=== PATIENT | male | born 1965 | race Caucasian/White ===

== ENCOUNTER 2017-07-23 07:50 | Inpatient (IN) | payer OTHER ==
[~2017-07-23] VITALS: Ht 177.8 cm; Wt 125.0 kg
[2017-07-23] VITALS (31 sets, daily range): BP systolic 96–187; BP diastolic 55–96
[2017-07-23] MEDS ORDERED: FIRAZYR30 MG/3 ML SQ (08:03)
[2017-07-23] MEDS ORDERED: EPINEPHrine 1mg/1ml Amp ONE (08:05)
[2017-07-23] MEDS ORDERED: Racemic EPINEPHrine 2.25% 0.5ml HHN ONE (08:15)
[2017-07-23] MEDS ORDERED: Solu-MEDROL 125mg Inj IVP ONE (08:15)
[2017-07-23] MEDS ORDERED: DiphenhydrAMINE 50mg/ml Inj IVP ONE (08:15)
[2017-07-23] MEDS ORDERED: EPINEPHrine 1mg/1ml Amp IM ONE (08:15)
[2017-07-23 08:30] LABS: BASOPHILS % (AUTO) 1.6 % (0.0-2.0); EOSINOPHILS % (AUTO) 3.1 % (0.0-3.0); HEMATOCRIT 48.5 % (42.0-52.0); HEMOGLOBIN 16.8 G/DL (14.2-18.0); LYMPHOCYTES % (AUTO) 33.2 % (20.0-45.0); MEAN CORPUSCULAR VOLUME 84 FL (80-99); MONOCYTES % (AUTO) 6.8 % (1.0-10.0); NEUTROPHILS % (AUTO) 55.4 % (45.0-75.0); PLATELET COUNT 355 K/UL (150-450); RED CELL DISTRIBUTION WIDTH 11.6 % (11.6-14.8); WHITE BLOOD COUNT 10.4 K/UL (4.8-10.8)
[2017-07-23 08:34] LABS: ANION GAP 9 mmol/L (5-15); BLOOD UREA NITROGEN 11 mg/dL (7-18); CALCIUM 9.2 MG/DL (8.5-10.1); CARBON DIOXIDE 29 MMOL/L (21-32); CHLORIDE 102 MMOL/L (98-107); POTASSIUM 4.2 MMOL/L (3.5-5.1); SODIUM 140 MMOL/L (136-145)
[2017-07-23 08:45] LABS: ALANINE AMINOTRANSFERASE 81 U/L (12-78); ALBUMIN 3.9 G/DL (3.4-5.0); ALBUMIN/GLOBULIN RATIO 1.1 (1.0-2.7); ALKALINE PHOSPHATASE 79 U/L (46-116); ASPARTATE AMINO TRANSFERASE 37 U/L (15-37); BILIRUBIN,TOTAL 0.5 MG/DL (0.2-1.0); CREATINE KINASE 220 U/L (26-308)
--- NOTE | 2017-07-23 08:55 | Emergency Room Report ---
History of Present Illness General Chief Complaint: Dyspnea/Respdistress Source: Patient Present Illness HPI The patient has a history of hereditary and edema. He presents with an allergic reaction with swelling in his tongue and mouth and throat. Started last night he says. He usually takes Firazyr but doesn't have any at this time. He states his been intubated one time before many years ago. No fever, NVD, dysuria, chest pain, cough, joint pain, headache. Some anxiety. Allergies: Coded Allergies: No Known Allergies (Unverified , 07/23/17) Patient History Past Medical History: see triage record, other - hereditary angioedema Pertinent Family History: other - hereditary angioedema Social History: Denies: smoking, alcohol use, drug use Social History Narrative at home Reviewed Nursing Documentation: PMH: Agreed; PSxH: Agreed Nursing Documentation-PMH Past Medical History: No History, Except For Review of Systems All Other Systems: negative except mentioned in HPI Physical Exam Vital Signs Date Time Temp Pulse Resp B/P (MAP) Pulse Ox O2 Delivery O2 Flow Rate FiO2 07/23/17 07:59 Room Air 07/23/17 08:19 106 16 4.0 07/23/17 08:24 175/88 100 Sp02 EP Interpretation: reviewed, normal General Appearance: no apparent distress, alert, GCS 15, obese Eyes: bilateral eye normal inspection, bilateral eye PERRL ENT: moist mucus membranes, other - marked lip and tongue edema Neck: other - minimal stidor - intermittent Respiratory: normal breath sounds, no respiratory distress, no retraction, no accessory muscle use Cardiovascular #1: regular rate, rhythm Cardiovascular #2: 2+ radial (L) Gastrointestinal: non tender, soft, decreased bowel sounds, overweight Musculoskeletal: back normal, gait/station normal, normal range of motion, no calf tenderness Neurologic: alert, oriented x3, grossly normal Psychiatric: anxious Skin: normal color, warm/dry, well hydrated, other - facial edema Procedures Critical Care Time Critical Care Time Total Critical Care Time: 135 min bedside evaluation and treatment excludes procedures (EKG, cricothyrotomy). Reason for critical care: angioedema, emergent airway, sedation, FFP transfusion Possible complications: hypotension, hypertension, CA, shock, arrhythmias, metabolic acidosis, end organ damage, respiratory failure. Interventions: epi, solumedrol, FFP, cricothyrotomy, sedation, ventilator adjustment, discussion with family and consultants, repeated evaluations Course: Patient presented with mouth and airway edema with h/o hereditary angioedema. Immediate placement in room with advanced airway tools. Epi IM, solumedrol, pepcid and benadryl administered. Call to pharmacy for Firazyr. Call to sister for same. Call to blood bank for FFP. Racemic epi. Some improvement. Discussed with patient need for intubation or possibly cric. He stated he wanted to wait for his sister with the medicine. Agitation with complete obstruction. Emergency cricothyrotomy. Transient bradycardia, patient hyperventilated and improvement of HR, color. Vent and sedation ordered. Sister here and discussed condition. Med on its way. Agitation with multiple doses of versed. Ineffective - Propofol ordered and titrated by me. Firazyr here and administered by me. Resp acidosis - change vent and Albuterol ordered. Discussed with critical care MD. Discussed with ENT for consultation. Discussed with admitting MD. Patient improved with stable VS. Admitted ICU. Consultations: nursing staff,RT, family, pharmacy, critical care MD, admitting MD and ENT Performed by: Dr. Williamson Tolerated well condition = critical Additional Procedure Procedure Narrative Emergent cricothyrotomy: Betadeine prep. Skin incision made with #12 blade. Incised cricothyoid membrane and kept open with scaple handle. Schiley 8.0 inserted with ease and good breath sounds. EBL approx 2 ml. Minimal blood suctioned from Sh[place], no ongoing bleeding. Secured by RT and myself. Tolerated well with improved VS. Placed on vent. Medical Decision Making Diagnostic Impression: Primary Impression: Hereditary angio-edema Additional Impressions: Upper airway obstruction Respiratory arrest ER Course The patient with hereditary angioedema presents with a true upper airway emergency. IM epinephrine, Solu Medrol, Benadryl and Pepcid are given to the patient. We're working to try and see if we can get some Firazyr here. In addition to that - cricothyrotomy and intubation equipment is opened at bedside. Racemic epi was given and the patient states he feels a little bit better with this. I've contacted the patient's sister is that she's working on bringing in Firazyr. [facility] does not have this medicine available. Fresh frozen plasma is ordered from the blood bank also, I called stating we needed this STAT. FFP transfusing. Discussed with patient probable need for intubation and possibly surgical airway. He refused and wants to wait for sister and med. Patient obstructed at 9:00. Agitation with then loss of consciousness. Immediately cricothyrotomy performed. Transient bradycardia which resolved. Placed on vent. Never lost pulses. Sister arrived. Discussed condition. Soon a friend provided Firazyr. Administered SC by me. Agitation treated with repeated doses of versed. ABG with resp acidosis. Vent changed and Albuterol ordered. Versed ineffective - Propofol boluses by me until adequate sedation. Discussed with Dr. Pa, Dr. Moore and Dr. Lindsay. Admit ICU. Laboratory Tests Test 07/23/17 08:03 07/23/17 10:38 07/23/17 14:09 White Blood Count 10.4 K/UL (4.8-10.8) Red Blood Count 5.80 M/UL (4.70-6.10) Hemoglobin 16.8 G/DL (14.2-18.0) Hematocrit 48.5 % (42.0-52.0) Mean Corpuscular Volume 84 FL (80-99) Mean Corpuscular Hemoglobin 28.9 PG (27.0-31.0) Mean Corpuscular Hemoglobin Concent 34.5 G/DL (32.0-36.0) Red Cell Distribution Width 11.6 % (11.6-14.8) Platelet Count 355 K/UL (150-450) Mean Platelet Volume 6.9 FL (6.5-10.1) Neutrophils (%) (Auto) 55.4 % (45.0-75.0) Lymphocytes (%) (Auto) 33.2 % (20.0-45.0) Monocytes (%) (Auto) 6.8 % (1.0-10.0) Eosinophils (%) (Auto) 3.1 % (0.0-3.0) H Basophils (%) (Auto) 1.6 % (0.0-2.0) Prothrombin Time 10.4 SEC (9.30-11.50) Prothrombin Time INR 1.0 (0.9-1.1) PTT 22 SEC (23-33) L Sodium Level 140 MMOL/L (136-145) Potassium Level 4.2 MMOL/L (3.5-5.1) Chloride Level 102 MMOL/L (98-107) Carbon Dioxide Level 29 MMOL/L (21-32) Anion Gap 9 mmol/L (5-15) Blood Urea Nitrogen 11 mg/dL (7-18) Creatinine 1.0 MG/DL (0.55-1.30) Estimate Glomerular Filtration Rate > 60 mL/min (>60) Glucose Level 135 MG/DL (74-106) H Calcium Level 9.2 MG/DL (8.5-10.1) Total Bilirubin 0.5 MG/DL (0.2-1.0) Aspartate Amino Transferase (AST) 37 U/L (15-37) Alanine Aminotransferase (ALT) 81 U/L (12-78) H Alkaline Phosphatase 79 U/L (46-116) Total Creatine Kinase 220 U/L (26-308) Troponin I 0.000 ng/mL (0.000-0.056) Pro-B-Type Natriuretic Peptide 14 pg/mL (0-125) Total Protein 7.5 G/DL (6.4-8.2) Albumin 3.9 G/DL (3.4-5.0) Globulin 3.6 g/dL Albumin/Globulin Ratio 1.1 (1.0-2.7) Triglycerides Level 313 MG/DL (30-150) H Arterial Blood pH 7.103 (7.350-7.450) 7.385 (7.350-7.450) Arterial Blood Partial Pressure CO2 56.6 mmHg (35.0-45.0) *H 37.3 mmHg (35.0-45.0) Arterial Blood Partial Pressure O2 141.0 mmHg (75.0-100.0) H 114.0 mmHg (75.0-100.0) H Arterial Blood HCO3 17.3 mmol/L (22.0-26.0) L 21.8 mmol/L (22.0-26.0) L Arterial Blood Oxygen Saturation 97.9 % (92.0-98.0) 97.3 % (92.0-98.0) Arterial Blood Base Excess -12.9 -2.7 Gpoi Test Positive Positive EKG Diagnostic Results Rate: tachycardiac ST Segments: no acute changes Other Impression Second EKG: ST, nl axis no injury Rhythm Strip Diag. Results EP Interpretation: yes Rhythm: no PVC's, no ectopy, other - tachy Chest X-Ray Diagnostic Results Chest X-Ray Diagnostic Results #1: Chest X-Ray Ordered: Yes # of Views/Limited/Complete: 1 View Indication: Other Interpretation: no consolidation, no effusion, no pneumothorax Impression: Other Electronically Signed by: Electronically signed by Khurram Williamson MD Chest X-Ray Diagnostic Results #2: Chest X-Ray Ordered: Yes # of Views/Limited/Complete: 1 View Indication: Other Interpretation: no consolidation, no effusion, no pneumothorax, other - cric in place Impression: Other Electronically Signed by: Khurram Williamson MD Last Vital Signs Date Time Temp Pulse Resp B/P (MAP) Pulse Ox O2 Delivery O2 Flow Rate FiO2 07/23/17 19:04 74 21 60 07/23/17 19:04 100 Mechanical Ventilator 07/23/17 18:30 110/93 07/23/17 17:30 97.7 97.7 07/23/17 14:33 15.0 Status: improved Disposition: ADMITTED INPATIENT Condition: Critical Referrals: NON PHYSICIAN (PCP) Khurram Williamson M.D. Jul 23, 2017 08:55
[2017-07-23] MEDS ORDERED: Midazolam 2mg/2ml Inj IVP ONE ×4 (09:15→10:15)
--- NOTE | 2017-07-23 09:56 | Diagnostic Imaging Report ---
Indication: Dyspnea Technique: One view of the chest Comparison: none Findings: There is some atelectasis of the right lung base. Lungs and pleural spaces are otherwise clear. Normal heart size Impression: Minimal right basilar atelectasis. No acute process otherwise
[2017-07-23] MEDS ORDERED: Midazolam for drip 50 MG in NS 90 ML IV ONE (10:00)
[2017-07-23] MEDS ORDERED: Propofol 200mg/20ml IV ONE ×3 (10:15→20:15)
[2017-07-23] MEDS ORDERED: FIRAZYR SUBQ STA (11:00)
[2017-07-23] MEDS ORDERED: Albuterol ud Inhalation HHN ONE (11:00)
[2017-07-23] MEDS ORDERED: Midazolam for drip 50 MG in NS 90 ML IV SCH (11:00)
--- NOTE | 2017-07-23 11:18 | Diagnostic Imaging Report ---
Indication: Post tracheostomy placement Technique: One view of the chest Comparison: One hour earlier Findings: Interim tracheostomy placement. No pneumothorax or pneumomediastinum is evident. Inspiration is suboptimal. There is some crowding of the bronchovascular markings in the right suprahilar region. The lungs and pleural spaces are otherwise clear. The heart size is normal Impression: Apparent satisfactory tracheostomy placement, no radiographically evident complication
[2017-07-23] MEDS: D5NS 1,000 ML IV SCH ×2 (14:00→23:28)
[2017-07-23] MEDS: ceFAZolin sod 1 GM in D5W 55 ML IVPB SCH ×2 (14:00→21:27)
[2017-07-23] MEDS: Pantoprazole Inj IVP SCH (14:00)
[2017-07-23] MEDS: Solu-MEDROL 40mg Inj IVP SCH ×2 (14:05→21:26)
[2017-07-23] MEDS: Albuterol/Ipratropium 3ml neb HHN SCH ×2 (14:31→19:03)
[2017-07-23] MEDS ORDERED: Morphine Sulfate 10mg/ml Inj IVP PRN (21:30)
[2017-07-23] MEDS ORDERED: Morphine Sulfate 4mg/ml Inj IVP PRN (21:30)
[2017-07-23] MEDS ORDERED: Morphine Sulfate 10mg/ml Inj IM PRN (21:30)
[2017-07-23] MEDS: Morphine Sulfate 4mg/ml Inj IVP PRN (21:49)
[2017-07-23 21:55] LABS: APPEARANCE,URINE TURBID; BILIRUBIN, URINE NEGATIVE (NEGATIVE); COLOR,URINE PALE YELLOW; GLUCOSE, URINE (UA) NEGATIVE (NEGATIVE); KETONES,URINE NEGATIVE (NEGATIVE); LEUKOCYTE ESTERASE ,URINE 1+ (NEGATIVE); NITRITE,URINE NEGATIVE (NEGATIVE); PH,URINE 6 (4.5-8.0); PROTEIN,URINE 1+ (NEGATIVE); UROBILINOGEN,URINE NORMAL MG/DL (0.0-1.0)
[2017-07-24] VITALS (40 sets, daily range): BP systolic 115–189; BP diastolic 58–97
[2017-07-24] MEDS: Albuterol/Ipratropium 3ml neb HHN SCH ×4 (01:13→19:36)
[2017-07-24] MEDS ORDERED: LORazepam Inj 2mg/ml 1ml IV PRN (02:30)
[2017-07-24 05:01] LABS: HEMATOCRIT 38.6 % (42.0-52.0); HEMOGLOBIN 13.4 G/DL (14.2-18.0); MEAN CORPUSCULAR VOLUME 83 FL (80-99); PLATELET COUNT 286 K/UL (150-450); RED BLOOD COUNT 4.63 M/UL (4.70-6.10); RED CELL DISTRIBUTION WIDTH 11.5 % (11.6-14.8); WHITE BLOOD COUNT 18.4 K/UL (4.8-10.8)
[2017-07-24 05:16] LABS: ALANINE AMINOTRANSFERASE 67 U/L (12-78); ALBUMIN 3.8 G/DL (3.4-5.0); ALBUMIN/GLOBULIN RATIO 1.1 (1.0-2.7); ALKALINE PHOSPHATASE 66 U/L (46-116); ANION GAP 10 mmol/L (5-15); ASPARTATE AMINO TRANSFERASE 33 U/L (15-37); BILIRUBIN,TOTAL 0.5 MG/DL (0.2-1.0); BLOOD UREA NITROGEN 14 mg/dL (7-18); CARBON DIOXIDE 26 MMOL/L (21-32); CHLORIDE 104 MMOL/L (98-107); POTASSIUM 3.7 MMOL/L (3.5-5.1); SODIUM 140 MMOL/L (136-145); TRIGLYCERIDES 198 MG/DL (30-150)
[2017-07-24] MEDS: ceFAZolin sod 1 GM in D5W 55 ML IVPB SCH ×3 (05:59→21:21)
[2017-07-24] MEDS: Solu-MEDROL 40mg Inj IVP SCH ×3 (05:59→21:20)
--- NOTE | 2017-07-24 07:57 | General Progress Note ---
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 system SNOMED: 22205097 Status: stable, progressing Assessment/Plan vent support resp care anxiolytics FFP as needed pharmacy to deliver additonal doses of firazyr tomorrow Subjective ROS Limited/Unobtainable: No Constitutional: Reports: no symptoms HEENT: Reports: throat pain Cardiovascular: Reports: no symptoms Respiratory: Reports: no symptoms Gastrointestinal/Abdominal: Reports: no symptoms Genitourinary: Reports: no symptoms Neurologic/Psychiatric: Reports: no symptoms Endocrine: Reports: no symptoms Hematologic/Lymphatic: Reports: no symptoms Allergies: Coded Allergies: No Known Allergies (Unverified , 07/23/17) All Systems: reviewed and negative except above Subjective no events. alert. c/o anxiety. facial edema improving approx 25% better. Objective Last 24 Hour Vital Signs Date Time Temp Pulse Resp B/P (MAP) Pulse Ox O2 Delivery O2 Flow Rate FiO2 07/24/17 07:00 20 145/72 07/24/17 07:00 73 20 136/79 97 Mechanical Ventilator 60 07/24/17 06:59 50 07/24/17 06:59 76 21 99 Mechanical Ventilator 50 07/24/17 06:50 71 21 60 07/24/17 06:49 71 21 95 Mechanical Ventilator 50 07/24/17 06:30 76 20 146/82 99 Mechanical Ventilator 60 07/24/17 06:00 76 20 140/71 99 Mechanical Ventilator 60 07/24/17 06:00 19 140/71 07/24/17 05:59 20 141/69 07/24/17 05:24 87 21 60 07/24/17 05:00 84 20 133/65 97 Mechanical Ventilator 60 07/24/17 05:00 18 133/65 07/24/17 04:30 71 20 119/61 97 Mechanical Ventilator 60 07/24/17 04:00 98.4 72 20 127/63 97 Mechanical Ventilator 60 98.4 07/24/17 04:00 20 127/63 07/24/17 04:00 60 07/24/17 04:00 69 07/24/17 03:45 72 20 118/67 97 Mechanical Ventilator 60 07/24/17 03:30 72 20 115/58 96 Mechanical Ventilator 60 07/24/17 03:30 20 117/64 07/24/17 03:15 20 118/61 07/24/17 03:15 74 20 118/61 96 Mechanical Ventilator 60 07/24/17 03:00 79 20 126/61 97 Mechanical Ventilator 60 07/24/17 03:00 20 126/61 07/24/17 02:45 81 20 60 07/24/17 02:45 76 20 126/61 97 Mechanical Ventilator 60 07/24/17 02:45 20 126/61 07/24/17 02:30 20 126/61 07/24/17 02:30 81 20 136/73 98 Mechanical Ventilator 60 07/24/17 02:15 20 136/73 07/24/17 02:15 88 20 147/71 98 Mechanical Ventilator 60 07/24/17 02:00 91 22 141/65 98 Mechanical Ventilator 60 07/24/17 02:00 22 141/65 07/24/17 01:45 21 156/70 07/24/17 01:40 20 130/70 07/24/17 01:32 77 20 99 Mechanical Ventilator 15.0 60 07/24/17 01:32 60 07/24/17 01:30 69 20 129/65 100 Mechanical Ventilator 60 07/24/17 01:30 20 125/65 07/24/17 01:15 70 20 129/65 99 Mechanical Ventilator 60 07/24/17 01:14 72 20 99 Mechanical Ventilator 60 07/24/17 01:12 74 20 60 07/24/17 01:00 20 120/66 07/24/17 01:00 69 20 129/65 98 Mechanical Ventilator 60 07/24/17 00:45 20 129/65 07/24/17 00:45 69 20 129/96 98 Mechanical Ventilator 60 07/24/17 00:30 69 20 126/68 97 Mechanical Ventilator 60 07/24/17 00:00 69 07/24/17 00:00 98.3 70 20 125/68 97 Mechanical Ventilator 60 98.3 07/24/17 00:00 20 122/64 07/24/17 00:00 60 07/23/17 23:30 71 20 131/71 97 Mechanical Ventilator 60 07/23/17 23:21 74 20 60 07/23/17 23:00 20 125/68 07/23/17 23:00 72 20 125/65 97 Mechanical Ventilator 60 07/23/17 22:00 76 20 114/80 99 Mechanical Ventilator 60 07/23/17 22:00 20 114/80 07/23/17 21:26 22 161/82 18 21:15 19 130/56 07/23/17 21:15 80 20 161/82 100 Mechanical Ventilator 60 07/23/17 21:00 78 20 117/60 100 Mechanical Ventilator 60 07/23/17 21:00 21 133/79 07/23/17 20:45 20 150/76 07/23/17 20:45 77 20 111/89 100 Mechanical Ventilator 60 07/23/17 20:33 78 23 60 07/23/17 20:30 20 144/70 07/23/17 20:30 72 18 143/67 100 Mechanical Ventilator 60 07/23/17 20:15 19 161/82 07/23/17 20:15 72 18 143/67 100 Mechanical Ventilator 60 07/23/17 20:00 60 07/23/17 20:00 74 07/23/17 20:00 18 143/67 07/23/17 20:00 98.8 71 18 143/67 100 Mechanical Ventilator 60 98.8 07/23/17 19:45 19 108/62 07/23/17 19:45 70 19 130/71 100 Mechanical Ventilator 60 07/23/17 19:30 98.0 71 20 108/92 100 Mechanical Ventilator 60 98.0 07/23/17 19:14 78 20 99 Mechanical Ventilator 15.0 60 07/23/17 19:14 60 07/23/17 19:04 74 21 60 07/23/17 19:04 73 22 100 Mechanical Ventilator 60 07/23/17 19:00 20 108/92 07/23/17 19:00 72 20 108/92 100 Mechanical Ventilator 60 07/23/17 18:30 75 18 110/93 100 Mechanical Ventilator 60 07/23/17 18:00 66 20 136/67 100 Mechanical Ventilator 60 07/23/17 18:00 20 136/67 07/23/17 17:30 97.7 67 20 125/69 100 Mechanical Ventilator 60 97.7 07/23/17 17:15 65 20 60 07/23/17 17:00 63 20 123/56 100 Mechanical Ventilator 60 07/23/17 17:00 20 125/69 07/23/17 16:33 64 07/23/17 16:00 65 19 122/61 100 Mechanical Ventilator 60 07/23/17 16:00 19 123/56 07/23/17 15:48 20 115/59 18 15:30 63 20 115/59 99 Mechanical Ventilator 60 07/23/17 15:00 63 20 114/59 100 Mechanical Ventilator 60 07/23/17 15:00 20 123/59 07/23/17 14:35 68 20 60 07/23/17 14:33 68 20 99 Mechanical Ventilator 15.0 60 07/23/17 14:30 63 20 116/60 100 Mechanical Ventilator 60 07/23/17 14:26 72 20 98 Mechanical Ventilator 15.0 60 07/23/17 14:26 60 07/23/17 14:00 65 20 96/80 100 Mechanical Ventilator 60 07/23/17 14:00 20 114/59 07/23/17 13:30 65 20 96/80 100 Mechanical Ventilator 60 07/23/17 13:16 20 125/57 07/23/17 13:00 97.9 70 20 125/57 100 Mechanical Ventilator 60 97.9 07/23/17 12:39 98.0 81 20 122/75 97 Mechanical Ventilator 15.0 60 98.0 07/23/17 12:33 63 20 60 07/23/17 12:31 78 07/23/17 12:30 60 07/23/17 12:30 86 21 141/81 97 Mechanical Ventilator 60 07/23/17 12:02 81 20 122/75 97 Mechanical Ventilator 60 07/23/17 11:40 20 122/75 07/23/17 11:39 98.0 96 20 98.0 07/23/17 11:36 96.8 106 20 96.8 07/23/17 11:25 89 20 116/55 99 Mechanical Ventilator 60 07/23/17 11:25 21 121/65 07/23/17 11:12 100 20 96 Mechanical Ventilator 15.0 60 07/23/17 11:10 96.8 90 20 144/95 99 Mechanical Ventilator 60 96.8 07/23/17 11:10 20 144/95 07/23/17 11:00 85 20 96 Mechanical Ventilator 15.0 60 07/23/17 11:00 60 07/23/17 10:55 20 137/74 07/23/17 10:43 97.8 99 21 156/73 99 Mechanical Ventilator 60 97.8 07/23/17 10:41 97.8 07/23/17 10:40 20 156/73 07/23/17 10:33 89 20 60 07/23/17 10:08 13 07/23/17 09:45 97.8 105 20 182/89 97 Mechanical Ventilator 60 97.8 07/23/17 09:15 119 18 Mechanical Ventilator 15.0 60 07/23/17 09:13 119 18 60 07/23/17 09:10 97.8 107 21 187/96 97 Mechanical Ventilator 60 97.8 07/23/17 08:24 106 16 175/88 100 Nasal Cannula 4.0 07/23/17 08:19 106 16 Nasal Cannula 4.0 07/23/17 07:59 98.9 103 20 175/88 92 Room Air 99.0 Intake and Output 07/23/17 07/24/17 19:00 07:00 Intake Total 1211.14 ml 1226.432 ml Output Total 415 ml 955 ml Balance 796.14 ml 271.432 ml Intake IV Total 611.14 ml 1226.432 ml Blood Product 600 ml Output Urine Total 415 ml 955 ml # Voids 1 Laboratory Tests 07/23/17 08:03: White Blood Count 10.4, Red Blood Count 5.80, Hemoglobin 16.8, Hematocrit 48.5, Mean Corpuscular Volume 84, Mean Corpuscular Hemoglobin 28.9, Mean Corpuscular Hemoglobin Concent 34.5, Red Cell Distribution Width 11.6, Platelet Count 355, Mean Platelet Volume 6.9, Neutrophils (%) (Auto) 55.4, Lymphocytes (%) (Auto) 33.2, Monocytes (%) (Auto) 6.8, Eosinophils (%) (Auto) 3.1H, Basophils (%) (Auto ) 1.6, Prothrombin Time 10.4, Prothromb Time International Ratio 1.0, Activated Partial Thromboplast Time 22L, Sodium Level 140, Potassium Level 4.2, Chloride Level 102, Carbon Dioxide Level 29, Anion Gap 9, Blood Urea Nitrogen 11, Creatinine 1.0, Estimat Glomerular Filtration Rate > 60, Glucose Level 135H, Calcium Level 9.2, Total Bilirubin 0.5, Aspartate Amino Transf (AST/SGOT) 37, Alanine Aminotransferase (ALT/SGPT) 81H, Alkaline Phosphatase 79, Total Creatine Kinase 220, Troponin I 0.000, Pro-B-Type Natriuretic Peptide 14, Total Protein 7.5, Albumin 3.9, Globulin 3.6, Albumin/Globulin Ratio 1.1, Triglycerides Level 313H 07/23/17 10:38: Arterial Blood pH 7.103*L, Arterial Blood Partial Pressure CO2 56.6*H, Arterial Blood Partial Pressure O2 141.0H, Arterial Blood HCO3 17.3L, Arterial Blood Oxygen Saturation 97.9, Arterial Blood Base Excess -12.9, Gopi Test Positive 07/23/17 14:09: Arterial Blood pH 7.385, Arterial Blood Partial Pressure CO2 37.3, Arterial Blood Partial Pressure O2 114.0H, Arterial Blood HCO3 21.8L, Arterial Blood Oxygen Saturation 97.3, Arterial Blood Base Excess -2.7, Gopi Test Positive 07/23/17 21:30: Urine Color Pale yellow, Urine Appearance Turbid, Urine pH 6, Urine Specific [place] 1.010, Urine Protein 1+H, Urine Glucose (UA) Negative, Urine Ketones Negative, Urine Occult Blood 1+H, Urine Nitrite Negative, Urine Bilirubin Negative, Urine Urobilinogen Normal, Urine Leukocyte Esterase 1+H, Urine RBC 0- 2H, Urine WBC 0-2, Urine Squamous Epithelial Cells None, Urine Amorphous Sediment ManyH, Urine Bacteria ManyH 07/24/17 03:50: White Blood Count 18.4#H, Red Blood Count 4.63L, Hemoglobin 13.4L, Hematocrit 38.6L, Mean Corpuscular Volume 83, Mean Corpuscular Hemoglobin 29.0, Mean Corpuscular Hemoglobin Concent 34.8, Red Cell Distribution Width 11.5L, Platelet Count 286, Mean Platelet Volume 7.3, Neutrophils (%) (Auto) , Lymphocytes (%) (Auto) , Monocytes (%) (Auto) , Eosinophils (%) (Auto) , Basophils (%) (Auto) , Neutrophils % (Manual) [Pending], Lymphocytes % (Manual) [Pending], Platelet Estimate [Pending], Platelet Morphology [Pending], Sodium Level 140, Potassium Level 3.7, Chloride Level 104, Carbon Dioxide Level 26, Anion Gap 10, Blood Urea Nitrogen 14, Creatinine 1.0, Estimat Glomerular Filtration Rate > 60, Glucose Level 160H, Calcium Level 9.0, Total Bilirubin 0.5 , Aspartate Amino Transf (AST/SGOT) 33, Alanine Aminotransferase (ALT/SGPT) 67, Alkaline Phosphatase 66, Total Protein 7.3, Albumin 3.8, Globulin 3.5, Albumin/ Globulin Ratio 1.1, Triglycerides Level 198H, Complement C4 [Pending] Height (Feet): 5 Height (Inches): 10.00 Weight (Pounds): 270 General Appearance: no apparent distress, alert EENT: PERRL/EOMI Neck: other - facial and neck edema. Cardiovascular: normal peripheral pulses, normal rate Respiratory/Chest: chest wall non-tender, lungs clear, normal breath sounds Abdomen: normal bowel sounds, non tender, soft, no organomegaly Edema: no edema noted Arm (L), no edema noted Arm (R), no edema noted Leg (L), no edema noted Leg (R), no edema noted Pedal (L), no edema noted Pedal (R), no edema noted Generalized Neurologic: marketing operations assistant II-XII grossly normal, alert, oriented x 3, responsive Skin: normal pigmentation SUPRIYA RAMIREZ Jul 24, 2017 07:57
--- NOTE | 2017-07-24 08:14 | Consultation ---
Consult Note Consult Note 52 year old male presents with angioedema and respiratory failure. Patient required emergent tracheostomy. currently he is awake and awaiting further doses to help improve angioedema. patient with noted family history of same. Sister contacted and plans to bring in [facility]. PMH reviewed hereditary angioedema MEDS and ALLERGIES reviewed SOCIAL: independent, no limitations PHYSICAL WDWN NAD clear breath sounds bilaterally without rhonchi or wheeze [id number] without MRG NABS nontender no HSM no CCE nonfocal trach in place Laboratory Tests Test 07/23/17 10:38 07/23/17 14:09 07/23/17 21:30 07/24/17 03:50 Arterial Blood pH 7.103 (7.350-7.450) 7.385 (7.350-7.450) Arterial Blood Partial Pressure CO2 56.6 mmHg (35.0-45.0) *H 37.3 mmHg (35.0-45.0) Arterial Blood Partial Pressure O2 141.0 mmHg (75.0-100.0) H 114.0 mmHg (75.0-100.0) H Arterial Blood HCO3 17.3 mmol/L (22.0-26.0) L 21.8 mmol/L (22.0-26.0) L Arterial Blood Oxygen Saturation 97.9 % (92.0-98.0) 97.3 % (92.0-98.0) Arterial Blood Base Excess -12.9 -2.7 Gopi Test Positive Positive Urine Color Pale yellow Urine Appearance Turbid Urine pH 6 (4.5-8.0) Urine Specific [place] 1.010 (1.005-1.035) Urine Protein 1+ (NEGATIVE) H Urine Glucose (UA) Negative (NEGATIVE) Urine Ketones Negative (NEGATIVE) Urine Occult Blood 1+ (NEGATIVE) H Urine Nitrite Negative (NEGATIVE) Urine Bilirubin Negative (NEGATIVE) Urine Urobilinogen Normal MG/DL (0.0-1.0) Urine Leukocyte Esterase 1+ (NEGATIVE) H Urine RBC 0-2 /HPF (0 - 0) H Urine WBC 0-2 /HPF (0 - 0) Urine Squamous Epithelial Cells None /LPF (NONE/OCC) Urine Amorphous Sediment Many /LPF (NONE) H Urine Bacteria Many /HPF (NONE) H White Blood Count 18.4 K/UL (4.8-10.8) #H Red Blood Count 4.63 M/UL (4.70-6.10) L Hemoglobin 13.4 G/DL (14.2-18.0) L Hematocrit 38.6 % (42.0-52.0) L Mean Corpuscular Volume 83 FL (80-99) Mean Corpuscular Hemoglobin 29.0 PG (27.0-31.0) Mean Corpuscular Hemoglobin Concent 34.8 G/DL (32.0-36.0) Red Cell Distribution Width 11.5 % (11.6-14.8) L Platelet Count 286 K/UL (150-450) Mean Platelet Volume 7.3 FL (6.5-10.1) Neutrophils (%) (Auto) % (45.0-75.0) Lymphocytes (%) (Auto) % (20.0-45.0) Monocytes (%) (Auto) % (1.0-10.0) Eosinophils (%) (Auto) % (0.0-3.0) Basophils (%) (Auto) % (0.0-2.0) Neutrophils % (Manual) Pending Lymphocytes % (Manual) Pending Platelet Estimate Pending Platelet Morphology Pending Sodium Level 140 MMOL/L (136-145) Potassium Level 3.7 MMOL/L (3.5-5.1) Chloride Level 104 MMOL/L (98-107) Carbon Dioxide Level 26 MMOL/L (21-32) Anion Gap 10 mmol/L (5-15) Blood Urea Nitrogen 14 mg/dL (7-18) Creatinine 1.0 MG/DL (0.55-1.30) Estimat Glomerular Filtration Rate > 60 mL/min (>60) Glucose Level 160 MG/DL (74-106) H Calcium Level 9.0 MG/DL (8.5-10.1) Total Bilirubin 0.5 MG/DL (0.2-1.0) Aspartate Amino Transf (AST/SGOT) 33 U/L (15-37) Alanine Aminotransferase (ALT/SGPT) 67 U/L (12-78) Alkaline Phosphatase 66 U/L (46-116) Total Protein 7.3 G/DL (6.4-8.2) Albumin 3.8 G/DL (3.4-5.0) Globulin 3.5 g/dL Albumin/Globulin Ratio 1.1 (1.0-2.7) Triglycerides Level 198 MG/DL (30-150) H Complement C4 Pending IMPRESSION respiratory failure trach, emergent angiogedema, hereditary PLAN trach collar ENT evaluation firazyr monitor clinically monitor airway BEAU MARTINEZ Jul 24, 2017 08:14
--- NOTE | 2017-07-24 08:45 | History and Physical Report ---
DATE OF ADMISSION: 07/23/2017 CHIEF COMPLAINT: Respiratory failure and hereditary angioedema. HISTORY OF PRESENT ILLNESS: The patient is a 52-year-old male who apparently has a history of hereditary angioedema presented with complaints of swelling and shortness of breath of his tongue, mouth, and throat. Symptoms apparently started the day prior to admission. On evaluation in the emergency room, the patient initially received epinephrine, a dose of Solu-Medrol, Benadryl, as well as Pepcid. Unfortunately, he developed worsening shortness of breath requiring emergent cricothyroidotomy and he is currently on a ventilator and sedated with propofol. PAST MEDICAL HISTORY: Unknown except for a prior history of angioedema. PAST SURGICAL HISTORY: Also is unknown. CURRENT MEDICATIONS: Include Firazyr as needed. ALLERGIES: The patient has no known drug allergies. FAMILY HISTORY: Unknown. SOCIAL HISTORY: There is no known history of tobacco, ethanol, or drugs. REVIEW OF SYSTEMS: From the patient is unobtainable. He is currently intubated and sedated. PHYSICAL EXAMINATION: VITAL SIGNS: Temperature 98 degrees, pulse 81, respirations 20, and blood pressure 122/75. GENERAL: The patient is well developed and resting. HEENT: The pupils are equal, round, and reactive to light. There is edema of the face noted especially from the chin down to the neck area. There is a cricothyroidotomy. Dressings have been saturated with a slight amount of blood. HEART: Regular rate and rhythm. LUNGS: Clear anteriorly. ABDOMEN: Soft, nontender, and nondistended. EXTREMITIES: Without clubbing, cyanosis, or edema. LABORATORY DATA: White count was 10, hemoglobin 16, hematocrit 48, and platelets 355,000. ABG initially showed a pH of 7.1 with a CO2 of 56, pO2 of 141, and bicarb of 17. Coags are normal. Sodium is 140, potassium is 4.2, chloride 102, bicarb 29, BUN 11, and creatinine is 1.0. Troponin was negative. ASSESSMENT: This is a 52-year-old male with history of hereditary angioedema, who presents with respiratory failure due to angioedema. He apparently received a dose of Firazyr that family had brought in. He is currently on the ventilator and sedated. PLAN: Continue vent support, respiratory treatments, followup x-ray, and blood gas. Dosage has been left with the family to see if they have any adjustment of doses of Firazyr as it is not available at this hospital. The pharmacy of this hospital also contacted several closer larger hospitals and they also do not stock any of these medications. We will hydrate. DVT and stress ulcer prophylaxis. Consider antibiotics. Pulmonary followup. Sterling Lindsay M.D. DR: AJ JOB#: [id number] CC:
[2017-07-24] MEDS: D5NS 1,000 ML IV SCH ×2 (09:37→19:55)
[2017-07-24] MEDS: LORazepam Inj 2mg/ml 1ml IV PRN ×6 (09:37→23:15)
[2017-07-24] MEDS: Pantoprazole Inj IVP SCH (09:38)
--- NOTE | 2017-07-24 10:10 | General Progress Note ---
Progress Note Progress Note I was asked by Dr. 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 The patient noted the onset of pharyngeal and tongue swelling yesterday around 6 a.m. He self treated with 30 mg subcutaneous injection of Firazyr however the episode progressed and he was brought by the paramedics to the [facility] ER where an emergency tracheostomy was performed. The patient is current followed by Dr. Strickland an art director in [place] however he is relatively new to the practice. He has been on Firazyr which used early frequency aborts episodes of edema. He has never before reqiured tracheostomy or even intubation. He is not aware of anything that precipitated this episode such as uri or trauma. This morning he states that he is anxious and that he believes his airway is better but his tongue remains swollen. PMH is otherwise unremarkable. On exam he is an obese white male lying supine with tracheostomy on ventilator. Awake an alert and able to communicate with text messaging. Tongue is swollen. Lips normal. Assessment: Episode of ,laryngeal angioedema in this 41 year old which did not repond to bradykinin B2 receptor antagonist Firazyr which usually aborts bis episodes. His sister who is also affected will bring in 3 doses today. I recommend that he receive 30 mg as a slow subcutanous injection and have ongoing monitoring of his airway patency with the goal of discontinuing controlled ventilation. If progress is slow another dose may be given 6 hours later. Fresh frozen plasma is an option however may sometimes worsens the edema in the short term. Other options include plasma derived or recombinant C1 esterase inhibitor. Discussed with the allergy fellow at the [facility] in [place]. Will follow with you. Deepak Freitas M.D. Deepak Freitas MD Jul 24, 2017 10:10
--- NOTE | 2017-07-24 19:30 | Consultation ---
DATE OF CONSULTATION: 07/23/2017 HEAD AND NECK SURGERY AND ENT CONSULT TIME SEEN: 07/23/2017 at approximately 2 p.m. HISTORY OF PRESENT ILLNESS: This is a 52-year-old male, who presented to the emergency room with angioedema and respiratory failure with a history of hereditary angioedema. He had an emergent tracheostomy. When I saw him, he was not conversant although that seems to change according to the notes. He had just been trached a couple hours before. I have reviewed the medical records online. After examining the patient, he is on Ativan, morphine, propranolol, cefazolin, Solu-Medrol, Protonix, albuterol, and Proventil. The patient brought some of his own medicines fentanyl citrate and also Diprivan. No known drug allergies. Unsure of the remainder of this history beyond hereditary angioedema. PHYSICAL EXAMINATION: GENERAL: He is obese. BMI of 38.7. I will check him on Friday and I will speak with his primary today. If he is doing significantly better, we can remove the trach, but I would do a scope first if he is not doing significantly better. In the operating room, I will convert his existing tracheostomy to a smaller one, which would be more comfortable with the hopes of being able to decannulate him within the next week. Thank you very much for asking my opinion in care and treatment of this patient. Manav Moore M.D. DR: KATHY JOB#: [id number] CC:
[2017-07-24] MEDS: Morphine Sulfate 4mg/ml Inj IVP PRN (21:34)
[2017-07-25] VITALS (24 sets, daily range): BP systolic 135–182; BP diastolic 58–102
[2017-07-25] MEDS: Albuterol/Ipratropium 3ml neb HHN SCH ×4 (01:11→21:47)
[2017-07-25] MEDS: LORazepam Inj 2mg/ml 1ml IV PRN ×4 (04:14→21:15)
[2017-07-25 05:18] LABS: HEMATOCRIT 37.7 % (42.0-52.0); MEAN CORPUSCULAR VOLUME 85 FL (80-99); PLATELET COUNT 238 K/UL (150-450); RED BLOOD COUNT 4.45 M/UL (4.70-6.10); RED CELL DISTRIBUTION WIDTH 12.3 % (11.6-14.8)
[2017-07-25] MEDS: D5NS 1,000 ML IV SCH ×2 (05:20→15:21)
[2017-07-25 05:26] LABS: ALANINE AMINOTRANSFERASE 60 U/L (12-78); ALBUMIN 3.7 G/DL (3.4-5.0); ALKALINE PHOSPHATASE 63 U/L (46-116); ANION GAP 7 mmol/L (5-15); ASPARTATE AMINO TRANSFERASE 29 U/L (15-37); BILIRUBIN,TOTAL 0.6 MG/DL (0.2-1.0); BLOOD UREA NITROGEN 15 mg/dL (7-18); CARBON DIOXIDE 28 MMOL/L (21-32); CHLORIDE 105 MMOL/L (98-107); CREATININE 0.9 MG/DL (0.55-1.30); POTASSIUM 3.7 MMOL/L (3.5-5.1); SODIUM 140 MMOL/L (136-145)
[2017-07-25] MEDS: Solu-MEDROL 40mg Inj IVP SCH (05:29)
[2017-07-25] MEDS: ceFAZolin sod 1 GM in D5W 55 ML IVPB SCH ×3 (05:30→21:15)
--- NOTE | 2017-07-25 08:38 | General Progress Note ---
Assessment/Plan Problem List: (1) Angio-edema ICD Codes: T78.3XXA - Angioneurotic edema, initial encounter SNOMED: 85691308 (2) Respiratory arrest ICD Codes: R09.2 - Respiratory arrest SNOMED: 97325694 (3) Hereditary angio-edema ICD Codes: D84.1 - Defects in the complement system SNOMED: 42569896 Status: stable, progressing Assessment/Plan scope today by ent possible removal or trach or downsize to fenestrated trach swallow eval resp care anxiolytics FFP as needed Subjective ROS Limited/Unobtainable: No Constitutional: Reports: malaise, weakness HEENT: Reports: no symptoms Cardiovascular: Reports: no symptoms Respiratory: Reports: no symptoms Gastrointestinal/Abdominal: Reports: no symptoms Genitourinary: Reports: no symptoms Neurologic/Psychiatric: Reports: no symptoms Endocrine: Reports: no symptoms Hematologic/Lymphatic: Reports: no symptoms Allergies: Coded Allergies: No Known Allergies (Unverified , 07/23/17) All Systems: reviewed and negative except above Subjective no events. alert. c/o anxiety. facial edema improving approx 90% better. Objective Last 24 Hour Vital Signs Date Time Temp Pulse Resp B/P (MAP) Pulse Ox O2 Delivery O2 Flow Rate FiO2 07/25/17 07:00 77 21 159/80 97 T-piece 10.0 35 07/25/17 06:00 79 23 159/80 94 T-piece 10.0 35 07/25/17 05:00 86 18 159/82 100 T-piece 10.0 35 07/25/17 04:00 75 07/25/17 04:00 98.2 78 22 158/82 96 T-piece 10.0 35 98.2 07/25/17 04:00 10.0 35 07/25/17 03:00 76 21 147/80 98 T-piece 10.0 35 07/25/17 02:00 79 27 146/79 97 T-piece 10.0 35 07/25/17 01:19 86 21 99 T-piece 10.0 35 07/25/17 01:09 78 19 99 T-piece 10.0 35 07/25/17 01:09 35 07/25/17 01:08 99 T-piece 10.0 35 07/25/17 01:08 T-piece 10.0 35 3/30/18 01:00 82 18 146/79 98 T-piece 10.0 35 07/25/17 00:00 85 07/25/17 00:00 97.9 83 24 146/81 97 T-piece 10.0 35 97.9 07/25/17 00:00 10.0 35 07/24/17 23:00 79 21 143/82 97 T-piece 10.0 35 07/24/17 22:00 89 24 164/82 95 T-piece 10.0 35 07/24/17 21:00 88 22 164/82 96 T-piece 10.0 35 07/24/17 20:00 84 07/24/17 20:00 10.0 35 07/24/17 20:00 98.2 91 17 152/92 99 T-piece 10.0 35 98.2 07/24/17 19:46 84 19 98 T-piece 10.0 35 07/24/17 19:36 T-piece 10.0 35 07/24/17 19:36 98 T-piece 10.0 35 07/24/17 19:36 35 07/24/17 19:36 83 21 98 T-piece 10.0 35 07/24/17 19:00 83 22 145/82 98 T-piece 40 07/24/17 18:00 85 22 151/80 97 T-piece 40 07/24/17 17:00 88 21 156/81 95 T-piece 40 07/24/17 16:00 40 07/24/17 16:00 100 07/24/17 16:00 95 23 189/93 96 T-piece 40 07/24/17 15:00 97 22 163/97 99 T-piece 40 07/24/17 14:00 79 19 150/85 98 T-piece 40 07/24/17 13:00 83 20 141/79 98 T-piece 40 07/24/17 12:59 T-piece 12.0 32 07/24/17 12:59 98 T-piece 12.0 40 07/24/17 12:45 96 21 98 T-piece 50 07/24/17 12:45 40 07/24/17 12:36 87 16 98 T-piece 40 07/24/17 12:00 73 07/24/17 12:00 40 07/24/17 12:00 98.5 85 19 137/82 98 T-piece 40 98.5 07/24/17 11:00 80 18 140/75 98 T-piece 40 07/24/17 10:30 80 19 143/79 98 T-piece 40 07/24/17 10:00 73 18 149/82 98 T-piece 40 07/24/17 09:45 18 149/83 07/24/17 09:30 70 20 145/75 99 T-piece 40 07/24/17 09:30 18 140/78 07/24/17 09:15 20 151/87 07/24/17 09:09 87 20 07/24/17 09:01 85 23 40 07/24/17 09:00 71 19 130/79 98 Mechanical Ventilator 50 07/24/17 09:00 17 137/82 Intake and Output 07/24/17 07/25/17 19:00 07:00 Intake Total 1329.298 ml 1320 ml Output Total 590 ml 710 ml Balance 739.298 ml 610 ml Intake IV Total 1329.298 ml 1320 ml Output Urine Total 590 ml 710 ml Laboratory Tests 07/25/17 04:30: White Blood Count 19.0H, Red Blood Count 4.45L, Hemoglobin 13.0L, Hematocrit 37.7L, Mean Corpuscular Volume 85, Mean Corpuscular Hemoglobin 29.3, Mean Corpuscular Hemoglobin Concent 34.6, Red Cell Distribution Width 12.3, Platelet Count 238, Mean Platelet Volume 6.9, Neutrophils (%) (Auto) , Lymphocytes (%) ( Auto) , Monocytes (%) (Auto) , Eosinophils (%) (Auto) , Basophils (%) (Auto) , Differential Total Cells Counted 100, Neutrophils % (Manual) 93H, Lymphocytes % (Manual) 5L, Monocytes % (Manual) 2, Eosinophils % (Manual) 0, Basophils % ( Manual) 0, Band Neutrophils 0, Platelet Estimate Adequate, Platelet Morphology Normal, Red Blood Cell Morphology Normal, Sodium Level 140, Potassium Level 3.7 , Chloride Level 105, Carbon Dioxide Level 28, Anion Gap 7, Blood Urea Nitrogen 15, Creatinine 0.9, Estimat Glomerular Filtration Rate > 60, Glucose Level 146H , Calcium Level 9.0, Total Bilirubin 0.6, Aspartate Amino Transf (AST/SGOT) 29, Alanine Aminotransferase (ALT/SGPT) 60, Alkaline Phosphatase 63, Total Protein 7.4, Albumin 3.7, Globulin 3.7, Albumin/Globulin Ratio 1.0 Height (Feet): 5 Height (Inches): 10.00 Weight (Pounds): 272 General Appearance: WD/WN, alert Neck: supple Cardiovascular: normal rate, regular rhythm Respiratory/Chest: chest wall non-tender, lungs clear, normal breath sounds Abdomen: normal bowel sounds, non tender, soft, no organomegaly Edema: no edema noted Arm (L), no edema noted Arm (R), no edema noted Leg (L), no edema noted Leg (R), no edema noted Pedal (L), no edema noted Pedal (R), no edema noted Generalized Objective much less facial edema SUPRIYA RAMIREZ Jul 25, 2017 08:38
--- NOTE | 2017-07-25 08:49 | Critical Care Progress Note ---
Assessment/Plan Assessment/Plan IMPRESSION respiratory failure trach, emergent angiogedema, hereditary PLAN trach collar ENT evaluation for possible decannulation firazyr hopefully today monitor clinically monitor airway hope to discharge once improved medications/laboratory data/nursing notes/ICU care reviewed in detail note reviewed and edited care discussed with RN and RT ICU time spent 40 minutes Critical Care - Subjective Interval Events: stable overnight trach in place off vent EKG Rhythm: Sinus Rhythm I&O: Intake and Output 07/24/17 07/25/17 19:00 07:00 Intake Total 1329.298 ml 1320 ml Output Total 590 ml 710 ml Balance 739.298 ml 610 ml Intake IV Total 1329.298 ml 1320 ml Output Urine Total 590 ml 710 ml Critical Care - Objective Last 24 Hour Vital Signs Date Time Temp Pulse Resp B/P (MAP) Pulse Ox O2 Delivery O2 Flow Rate FiO2 07/25/17 07:00 77 21 159/80 97 T-piece 10.0 35 07/25/17 06:00 79 23 159/80 94 T-piece 10.0 35 07/25/17 05:00 86 18 159/82 100 T-piece 10.0 35 07/25/17 04:00 75 07/25/17 04:00 98.2 78 22 158/82 96 T-piece 10.0 35 98.2 07/25/17 04:00 10.0 35 07/25/17 03:00 76 21 147/80 98 T-piece 10.0 35 07/25/17 02:00 79 27 146/79 97 T-piece 10.0 35 07/25/17 01:19 86 21 99 T-piece 10.0 35 07/25/17 01:09 78 19 99 T-piece 10.0 35 07/25/17 01:09 35 07/25/17 01:08 99 T-piece 10.0 35 07/25/17 01:08 T-piece 10.0 35 07/25/17 01:00 82 18 146/79 98 T-piece 10.0 35 07/25/17 00:00 85 07/25/17 00:00 97.9 83 24 146/81 97 T-piece 10.0 35 97.9 07/25/17 00:00 10.0 35 07/24/17 23:00 79 21 143/82 97 T-piece 10.0 35 07/24/17 22:00 89 24 164/82 95 T-piece 10.0 35 07/24/17 21:00 88 22 164/82 96 T-piece 10.0 35 07/24/17 20:00 84 07/24/17 20:00 10.0 35 07/24/17 20:00 98.2 91 17 152/92 99 T-piece 10.0 35 98.2 07/24/17 19:46 84 19 98 T-piece 10.0 35 07/24/17 19:36 T-piece 10.0 35 07/24/17 19:36 98 T-piece 10.0 35 07/24/17 19:36 35 07/24/17 19:36 83 21 98 T-piece 10.0 35 07/24/17 19:00 83 22 145/82 98 T-piece 40 07/24/17 18:00 85 22 151/80 97 T-piece 40 07/24/17 17:00 88 21 156/81 95 T-piece 40 07/24/17 16:00 40 07/24/17 16:00 100 07/24/17 16:00 95 23 189/93 96 T-piece 40 07/24/17 15:00 97 22 163/97 99 T-piece 40 07/24/17 14:00 79 19 150/85 98 T-piece 40 07/24/17 13:00 83 20 141/79 98 T-piece 40 07/24/17 12:59 T-piece 12.0 32 07/24/17 12:59 98 T-piece 12.0 40 07/24/17 12:45 96 21 98 T-piece 50 07/24/17 12:45 40 07/24/17 12:36 87 16 98 T-piece 40 07/24/17 12:00 73 07/24/17 12:00 40 07/24/17 12:00 98.5 85 19 137/82 98 T-piece 40 98.5 07/24/17 11:00 80 18 140/75 98 T-piece 40 07/24/17 10:30 80 19 143/79 98 T-piece 40 07/24/17 10:00 73 18 149/82 98 T-piece 40 07/24/17 09:45 18 149/83 07/24/17 09:30 70 20 145/75 99 T-piece 40 07/24/17 09:30 18 140/78 07/24/17 09:15 20 151/87 07/24/17 09:09 87 20 07/24/17 09:01 85 23 40 07/24/17 09:00 71 19 130/79 98 Mechanical Ventilator 50 07/24/17 09:00 17 137/82 Labs: Laboratory Tests Test 07/25/17 04:30 White Blood Count 19.0 K/UL (4.8-10.8) H Red Blood Count 4.45 M/UL (4.70-6.10) L Hemoglobin 13.0 G/DL (14.2-18.0) L Hematocrit 37.7 % (42.0-52.0) L Mean Corpuscular Volume 85 FL (80-99) Mean Corpuscular Hemoglobin 29.3 PG (27.0-31.0) Mean Corpuscular Hemoglobin Concent 34.6 G/DL (32.0-36.0) Red Cell Distribution Width 12.3 % (11.6-14.8) Platelet Count 238 K/UL (150-450) Mean Platelet Volume 6.9 FL (6.5-10.1) Neutrophils (%) (Auto) % (45.0-75.0) Lymphocytes (%) (Auto) % (20.0-45.0) Monocytes (%) (Auto) % (1.0-10.0) Eosinophils (%) (Auto) % (0.0-3.0) Basophils (%) (Auto) % (0.0-2.0) Differential Total Cells Counted 100 Neutrophils % (Manual) 93 % (45-75) H Lymphocytes % (Manual) 5 % (20-45) L Monocytes % (Manual) 2 % (1-10) Eosinophils % (Manual) 0 % (0-3) Basophils % (Manual) 0 % (0-2) Band Neutrophils 0 % (0-8) Platelet Estimate Adequate Platelet Morphology Normal Red Blood Cell Morphology Normal Sodium Level 140 MMOL/L (136-145) Potassium Level 3.7 MMOL/L (3.5-5.1) Chloride Level 105 MMOL/L (98-107) Carbon Dioxide Level 28 MMOL/L (21-32) Anion Gap 7 mmol/L (5-15) Blood Urea Nitrogen 15 mg/dL (7-18) Creatinine 0.9 MG/DL (0.55-1.30) Estimat Glomerular Filtration Rate > 60 mL/min (>60) Glucose Level 146 MG/DL (74-106) H Calcium Level 9.0 MG/DL (8.5-10.1) Total Bilirubin 0.6 MG/DL (0.2-1.0) Aspartate Amino Transf (AST/SGOT) 29 U/L (15-37) Alanine Aminotransferase (ALT/SGPT) 60 U/L (12-78) Alkaline Phosphatase 63 U/L (46-116) Total Protein 7.4 G/DL (6.4-8.2) Albumin 3.7 G/DL (3.4-5.0) Globulin 3.7 g/dL Albumin/Globulin Ratio 1.0 (1.0-2.7) Objective: WDWN NAD clear breath sounds bilaterally without rhonchi or wheeze [id number] without MRG NABS nontender no HSM no CCE nonfocal angioedema improved Micro: Microbiology Date/Time Source Procedure Growth Status 07/23/17 10:40 Nasal Nares MRSA Culture - Final NO METHICILLIN RESISTANT STAPH AUREUS... Complete 07/23/17 21:30 Urine,Clean Catch Urine Culture - Final NO GROWTH AFTER 48 HOURS Complete 07/23/17 10:40 Rectum VRE Culture - Final NO VANCOMYCIN RESISTANT ENTEROCOCCUS ... Complete BEAU MARTINEZ Jul 25, 2017 08:49
--- NOTE | 2017-07-25 08:50 | Diagnostic Imaging Report ---
APPROVED REPORT CPT Code: 25525 Present Symptoms Lower Extremity Edema: Bilateral RIGHT LEG: Venous imaging reveals recanalized chronic thrombus in the mid superficial femoral vein. Large collateral vein noted anterior to the superficial femoral artery. Imaging also reveals patency of the common femoral, distal superficial femoral, popliteal and calf veins. The greater saphenous vein is also within normal limits. Doppler indicates normal spontaneous flow within these segments. LEFT LEG: Venous imaging reveals a patent deep venous system. There is no evidence of thrombus within the femoral, popliteal or tibial segments. The greater saphenous vein is also within normal limits. Doppler indicates normal spontaneous flow within these segments. There is no evidence of acute deep vein thrombosis.
[2017-07-25] MEDS: Pantoprazole Inj IVP SCH (08:53)
[2017-07-25] MEDS ORDERED: Bisacodyl EC 5mg tab ORAL PRN (09:00)
[2017-07-25] MEDS: FIRAZYR SUBQ SCH (09:00)
[2017-07-25] MEDS ORDERED: Etomidate 40mg/20ml Inj IV ONE (09:28)
[2017-07-25] MEDS ORDERED: Zemuron 50mg/5ml Inj IV ONE (09:28)
[2017-07-25] MEDS ORDERED: Tubing IV Secondary IV ONE (10:04)
[2017-07-25] MEDS ORDERED: NS 275ml ONE ×2 (10:04→10:10)
[2017-07-25] MEDS ORDERED: Tubing Blood Filter IV ONE (10:04)
[2017-07-25] MEDS ORDERED: D5NS 1000ml IV ONE ×2 (10:04→10:10)
--- NOTE | 2017-07-25 14:39 | General Progress Note ---
Progress Note Progress Note ENT note Decannulation note Fiberoptic laryngoscopy before decan. no airway obstruction Decanulated Fiberoptic laryngoscopy 5 minutes post decan-no change from immediately pre decan. I stayed in ICU for 20 minutes, no issues-pt stable and comfortable. MEAGHAN MATA Jul 25, 2017 14:39
--- NOTE | 2017-07-25 14:43 | Pre-Procedure Note/Attestation ---
Pre-Procedure Note/Attestation Complete Prior to Procedure Planned Procedure: not applicable Procedure Narrative: Fiberoptic laryngoscopy and decannulation Attestation I attest that I discussed the nature of the procedure; its benefits; risks and complications; and alternatives (and the risks and benefits of such alternatives ), prior to the procedure, with the patient (or the patient's legal sales representative public utilities). I attest that, if there was a reasonable possibility of needing a blood transfusion, the patient (or the patient's legal sales representative public utilities) was given the [facility] standardized written summary, pursuant to the [place] Blood Safety Act ([place] Health and Safety Code # 1645, as amended). I attest that I re-evaluated the patient just prior to the surgery and that there has been no change in the patient's H&P. MEAGHAN MATA Jul 25, 2017 14:43
--- NOTE | 2017-07-25 14:45 | Brief Operative Note ---
Immediate Post Operative Note Operative Note Chief Complaint: airway obstruction Pre-op Diagnosis: anaphylaxis Procedure: Fiberoptic laryngoscopy and decannulation Post-op Diagnosis: airway is not obstructed Surgeon: Ethan Moore Product Trainer: none Additional Surgeons: none Anesthesiologist: none Anesthesia: other - none Specimen: none Complications: none Condition: stable Fluids: 0 Estimated Blood Loss: none Drains: none Packing: trach stoma was covered Implant(s) used?: ETHAN Vinson Jul 25, 2017 14:45
--- NOTE | 2017-07-25 19:45 | Procedure Note ---
DATE OF PROCEDURE: 07/25/2017 SURGEON: Manav Moore M.D. PROCEDURE: Fiberoptic laryngoscopy x2. INDICATION FOR PROCEDURE: The patient who had emergent cricothyroidotomy for angioedema of his airway two days ago. He is doing much better. We will determine whether he can be decannulated. PREOPERATIVE DIAGNOSIS: Airway obstruction. POSTOPERATIVE DIAGNOSIS: Resolution of airway obstruction. PROCEDURES: 1. Fiberoptic laryngoscopy, prior to decannulation. 2. Fiberoptic laryngoscopy, post decannulation. 3. Decannulation of tracheostomy tube. TECHNIQUE: The patient was prepped and draped in the usual manner. Time-out was performed. All confirmed with the equipment needed, which was a fiberoptic laryngoscopy that is flexible. Scope was passed through the mouth to look down at valleculae, epiglottis, and vocal cords, all was clear. Vocal cords moving well. Fiberoptic scope was passed through the mouth 5 minutes after decannulation. The patient was stable. The larynx and hypopharynx looked exactly the same as prior, except for I did not see the endotracheal tube distal to the vocal cords. Scope was removed. ESTIMATED BLOOD LOSS: Zero. COUNTS: None. DRAINS: None. SPONGE AND NEEDLE COUNT: Correct. Manav Moore M.D. DR: LAKHWINDER JOB#: [id number] CC:
[2017-07-26] VITALS (12 sets, daily range): BP systolic 108–165; BP diastolic 47–89
[2017-07-26] MEDS: Albuterol/Ipratropium 3ml neb HHN SCH ×4 (01:00→19:00)
[2017-07-26] MEDS: D5NS 1,000 ML IV SCH (02:00)
[2017-07-26] MEDS: LORazepam Inj 2mg/ml 1ml IV PRN (04:25)
[2017-07-26] MEDS: ceFAZolin sod 1 GM in D5W 55 ML IVPB SCH (06:08)
--- NOTE | 2017-07-26 08:04 | General Progress Note ---
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 competent. Subjective ROS Limited/Unobtainable: No Constitutional: Reports: no symptoms HEENT: Reports: no symptoms Cardiovascular: Reports: no symptoms Respiratory: Reports: no symptoms Gastrointestinal/Abdominal: Reports: no symptoms Genitourinary: Reports: no symptoms Neurologic/Psychiatric: Reports: no symptoms Endocrine: Reports: no symptoms Hematologic/Lymphatic: Reports: no symptoms Allergies: Coded Allergies: No Known Allergies (Unverified , 07/23/17) All Systems: reviewed and negative except above Subjective trach out. no sob. edema better. bp high but states there is a contraindication to bp meds and angioedema Objective Last 24 Hour Vital Signs Date Time Temp Pulse Resp B/P (MAP) Pulse Ox O2 Delivery O2 Flow Rate FiO2 07/26/17 07:02 Nasal Cannula 3.0 32 07/26/17 07:00 Nasal Cannula 3.0 32 07/26/17 07:00 90 23 165/83 93 Nasal Cannula 3.0 07/26/17 07:00 Nasal Cannula 3.0 32 07/26/17 07:00 93 Nasal Cannula 3.0 32 07/26/17 06:00 83 32 157/84 91 Nasal Cannula 3.0 07/26/17 05:00 80 28 151/78 90 Nasal Cannula 3.0 07/26/17 04:00 98.5 72 34 112/71 99 Nasal Cannula 3.0 98.5 07/26/17 04:00 72 07/26/17 03:00 72 33 108/53 99 Nasal Cannula 3.0 07/26/17 02:00 80 25 108/47 90 Nasal Cannula 3.0 07/26/17 01:31 Room Air 07/26/17 01:31 Room Air 07/26/17 01:00 70 23 148/75 92 Nasal Cannula 3.0 07/26/17 00:00 98.0 71 25 147/78 93 Nasal Cannula 3.0 98.0 07/26/17 00:00 66 07/25/17 23:00 69 23 147/80 94 Nasal Cannula 3.0 07/25/17 22:00 72 23 139/82 93 Nasal Cannula 3.0 07/25/17 21:47 96 Room Air 07/25/17 21:47 Room Air 07/25/17 21:00 69 18 135/62 95 Nasal Cannula 3.0 07/25/17 20:00 92 07/25/17 20:00 98.1 78 19 147/72 93 Nasal Cannula 3.0 98.1 07/25/17 19:40 71 21 95 Room Air 07/25/17 19:30 72 19 96 Room Air 07/25/17 19:30 35 07/25/17 19:00 72 21 146/81 96 Room Air 07/25/17 18:00 97.8 71 21 158/83 65 Room Air 97.8 07/25/17 17:00 77 21 157/95 65 Room Air 07/25/17 16:00 92 07/25/17 16:00 72 21 154/58 96 2.0 07/25/17 15:00 73 21 152/102 96 2.0 07/25/17 14:00 92 21 157/76 97 2.0 07/25/17 13:34 77 21 99 T-piece 10.0 35 07/25/17 13:31 T-piece 10.0 35 07/25/17 13:30 99 T-piece 10.0 35 07/25/17 13:30 35 07/25/17 13:29 85 19 98 T-piece 10.0 35 07/25/17 13:00 80 21 159/83 97 T-piece 10.0 35 07/25/17 12:00 80 07/25/17 12:00 73 21 182/92 97 T-piece 10.0 35 07/25/17 12:00 10.0 35 07/25/17 11:00 81 21 149/81 97 T-piece 10.0 35 07/25/17 10:00 75 21 175/93 97 T-piece 10.0 35 07/25/17 09:00 79 21 157/78 97 T-piece 10.0 35 07/25/17 08:55 99 T-piece 10.0 35 07/25/17 08:55 T-piece 10.0 35 07/25/17 08:25 35 07/25/17 08:25 82 21 99 T-piece 10.0 35 07/25/17 08:25 81 21 99 T-piece 10.0 35 07/25/17 08:15 80 19 99 T-piece 10.0 35 Intake and Output 07/25/17 07/26/17 19:00 07:00 Intake Total 1203.3 ml 1316.7 ml Output Total 580 ml 510 ml Balance 623.3 ml 806.7 ml Intake IV Total 1203.3 ml 1316.7 ml Output Urine Total 580 ml 510 ml Height (Feet): 5 Height (Inches): 10.00 Weight (Pounds): 275 General Appearance: WD/WN, alert Neck: supple Cardiovascular: regular rhythm Respiratory/Chest: lungs clear Abdomen: normal bowel sounds, non tender, soft, no organomegaly Edema: no edema noted Arm (L), no edema noted Arm (R), no edema noted Leg (L), no edema noted Leg (R), no edema noted Pedal (L), no edema noted Pedal (R), no edema noted Generalized Objective much less facial edema SUPRIYA RAMIREZ Jul 26, 2017 08:04
[2017-07-26] MEDS: Pantoprazole Inj IVP SCH ×2 (08:15→09:00)
[2017-07-26] MEDS: FIRAZYR SUBQ SCH (08:17)
[2017-07-26] MEDS ORDERED: Bisacodyl EC 5mg tab ORAL PRN (09:00)
[2017-07-26] MEDS ORDERED: Morphine Sulfate 4mg/ml Inj IVP PRN ×2 (09:00)
[2017-07-26] MEDS ORDERED: LORazepam Inj 2mg/ml 1ml IV PRN (09:00)
[2017-07-26] MEDS ORDERED: Morphine Sulfate 10mg/ml Inj IVP PRN (09:00)
[2017-07-26] MEDS ORDERED: D5NS 1,000 ML IV SCH (09:30)
--- NOTE | 2017-07-26 13:18 | Critical Care Progress Note ---
Assessment/Plan Assessment/Plan IMPRESSION respiratory failure trach, emergent angiogedema, hereditary PLAN trach out ENT evaluation noted monitor clinically monitor airway hope to discharge in am ABG reviewed out of bed and ambulate dc IV hydration medications/laboratory data/nursing notes/ICU care reviewed in detail note reviewed and edited care discussed with RN and RT ICU time spent 40 minutes Critical Care - Subjective Interval Events: doing well seen earlier trach out taking po anxious to go home Condition: improving EKG Rhythm: Sinus Rhythm I&O: Intake and Output 07/25/17 07/26/17 19:00 07:00 Intake Total 1203.3 ml 1316.7 ml Output Total 580 ml 510 ml Balance 623.3 ml 806.7 ml Intake IV Total 1203.3 ml 1316.7 ml Output Urine Total 580 ml 510 ml Critical Care - Objective Last 24 Hour Vital Signs Date Time Temp Pulse Resp B/P (MAP) Pulse Ox O2 Delivery O2 Flow Rate FiO2 07/26/17 12:44 75 20 96 Room Air 21 07/26/17 12:33 Room Air 21 07/26/17 12:33 93 Room Air 21 07/26/17 12:33 73 18 93 Nasal Cannula 3.0 32 07/26/17 12:00 99.0 73 20 145/83 94 Room Air 99.0 07/26/17 08:00 98.8 83 21 158/89 95 Nasal Cannula 3.0 98.8 07/26/17 08:00 81 07/26/17 07:02 Nasal Cannula 3.0 32 07/26/17 07:00 Nasal Cannula 3.0 32 07/26/17 07:00 90 23 165/83 93 Nasal Cannula 3.0 07/26/17 07:00 Nasal Cannula 3.0 32 07/26/17 07:00 93 Nasal Cannula 3.0 32 07/26/17 06:00 83 32 157/84 91 Nasal Cannula 3.0 07/26/17 05:00 80 28 151/78 90 Nasal Cannula 3.0 07/26/17 04:00 98.5 72 34 112/71 99 Nasal Cannula 3.0 98.5 07/26/17 04:00 72 07/26/17 03:00 72 33 108/53 99 Nasal Cannula 3.0 07/26/17 02:00 80 25 108/47 90 Nasal Cannula 3.0 07/26/17 01:31 Room Air 07/26/17 01:31 Room Air 07/26/17 01:00 70 23 148/75 92 Nasal Cannula 3.0 07/26/17 00:00 98.0 71 25 147/78 93 Nasal Cannula 3.0 98.0 07/26/17 00:00 66 07/25/17 23:00 69 23 147/80 94 Nasal Cannula 3.0 07/25/17 22:00 72 23 139/82 93 Nasal Cannula 3.0 07/25/17 21:47 96 Room Air 07/25/17 21:47 Room Air 07/25/17 21:00 69 18 135/62 95 Nasal Cannula 3.0 07/25/17 20:00 92 07/25/17 20:00 98.1 78 19 147/72 93 Nasal Cannula 3.0 98.1 07/25/17 19:40 71 21 95 Room Air 07/25/17 19:30 72 19 96 Room Air 07/25/17 19:30 35 07/25/17 19:00 72 21 146/81 96 Room Air 07/25/17 18:00 97.8 71 21 158/83 65 Room Air 97.8 07/25/17 17:00 77 21 157/95 65 Room Air 07/25/17 16:00 92 07/25/17 16:00 72 21 154/58 96 2.0 07/25/17 15:00 73 21 152/102 96 2.0 07/25/17 14:00 92 21 157/76 97 2.0 07/25/17 13:34 77 21 99 T-piece 10.0 35 07/25/17 13:31 T-piece 10.0 35 07/25/17 13:30 99 T-piece 10.0 35 07/25/17 13:30 35 07/25/17 13:29 85 19 98 T-piece 10.0 35 Labs: Laboratory Tests Test 07/26/17 08:50 Arterial Blood pH 7.470 (7.350-7.450) Arterial Blood Partial Pressure CO2 33.4 mmHg (35.0-45.0) L Arterial Blood Partial Pressure O2 66.4 mmHg (75.0-100.0) L Arterial Blood HCO3 24.1 mmol/L (22.0-26.0) Arterial Blood Oxygen Saturation 92.6 % (92.0-98.0) Arterial Blood Base Excess 1.1 Gopi Test Positive Objective: WDWN NAD clear breath sounds bilaterally without rhonchi or wheeze [id number] without MRG NABS nontender no HSM no CCE nonfocal angioedema appears to have resolve trach out Micro: Microbiology Date/Time Source Procedure Growth Status 07/23/17 21:30 Urine,Clean Catch Urine Culture - Final NO GROWTH AFTER 48 HOURS Complete BEAU MARTINEZ Jul 26, 2017 13:18
[2017-07-26] MEDS: ceFAZolin sod 1 GM in D5W 110 ML IVPB SCH ×2 (13:42→22:24)
[2017-07-26] MEDS ORDERED: Zolpidem 5mg tab ORAL PRN (14:15)
[2017-07-27] VITALS: BP 140/83
[2017-07-27] MEDS: Albuterol/Ipratropium 3ml neb HHN SCH ×2 (01:00→07:49)
[2017-07-27 04:00] VITALS: BP 150/76
[2017-07-27] MEDS: ceFAZolin sod 1 GM in D5W 110 ML IVPB SCH (05:39)
[2017-07-27 08:00] VITALS: BP 153/98
[2017-07-27] MEDS: Pantoprazole Inj IVP SCH (09:16)
[2017-07-27] MEDS ORDERED: D5NS 1000ml IV ONE ×2 (10:25→11:59)
[2017-07-27 11:01] LABS: BASOPHILS % (AUTO) 1.2 % (0.0-2.0); EOSINOPHILS % (AUTO) 3.9 % (0.0-3.0); HEMATOCRIT 43.4 % (42.0-52.0); HEMOGLOBIN 15.3 G/DL (14.2-18.0); LYMPHOCYTES % (AUTO) 20.3 % (20.0-45.0); MEAN CORPUSCULAR VOLUME 82 FL (80-99); MONOCYTES % (AUTO) 7.3 % (1.0-10.0); NEUTROPHILS % (AUTO) 67.3 % (45.0-75.0); PLATELET COUNT 248 K/UL (150-450); RED BLOOD COUNT 5.28 M/UL (4.70-6.10); RED CELL DISTRIBUTION WIDTH 11.3 % (11.6-14.8); WHITE BLOOD COUNT 12.1 K/UL (4.8-10.8)
--- NOTE | 2017-07-27 11:54 | Critical Care Progress Note ---
Assessment/Plan Assessment/Plan IMPRESSION respiratory failure trach, emergent angiogedema, hereditary PLAN dc today stable dressing change follow up and monitor stoma pft to confirm no upper airway obstruction Critical Care - Subjective Interval Events: doing well off oxygen ambulating taking po Condition: improving EKG Rhythm: Sinus Rhythm I&O: Intake and Output 07/26/17 07/27/17 19:00 07:00 Intake Total 1130 ml 810 ml Output Total 1900 ml 1600 ml Balance -770 ml -790 ml Intake Oral 720 ml 480 ml IV Total 410 ml 330 ml Output Urine Total 1900 ml 1600 ml Critical Care - Objective Last 24 Hour Vital Signs Date Time Temp Pulse Resp B/P (MAP) Pulse Ox O2 Delivery O2 Flow Rate FiO2 07/27/17 08:00 99.3 80 18 153/98 94 Room Air 99.3 07/27/17 08:00 76 07/27/17 07:57 75 18 98 Room Air 21 07/27/17 07:52 95 Room Air 21 07/27/17 07:52 Room Air 21 07/27/17 07:50 68 18 95 Room Air 07/27/17 04:00 64 07/27/17 04:00 96.8 67 18 150/76 97 Room Air 96.8 07/27/17 01:31 Room Air 07/27/17 01:30 74 18 95 Nasal Cannula 3.0 32 07/27/17 00:00 70 07/27/17 00:00 97.4 65 20 140/83 96 Room Air 97.4 07/26/17 20:20 Room Air 07/26/17 20:19 Room Air 07/26/17 20:18 94 Room Air 21 07/26/17 20:18 Room Air 21 07/26/17 20:00 67 07/26/17 20:00 98.1 71 19 141/71 94 Room Air 98.1 07/26/17 16:00 72 07/26/17 16:00 98.8 71 20 144/87 94 Room Air 98.8 07/26/17 12:44 75 20 96 Room Air 21 07/26/17 12:33 Room Air 21 07/26/17 12:33 93 Room Air 21 07/26/17 12:33 73 18 93 Nasal Cannula 3.0 32 07/26/17 12:00 76 07/26/17 12:00 99.0 73 20 145/83 94 Room Air 99.0 Objective: WDWN NAD clear breath sounds bilaterally without rhonchi or wheeze [id number] without MRG NABS nontender no HSM no CCE nonfocal stoma closing BEAU MARTINEZ Jul 27, 2017 11:54
--- NOTE | 2017-07-28 10:23 | Discharge Summary ---
Discharge Summary Discharge Summary Discharge Summary DATE OF ADMISSION: 07/23/2017 DATE OF DISCHARGE: 07/27/2017 REASON FOR ADMISSION: 52 years old male with history of hereditary angioedema presented with allergic reaction resulting in swelling of tongue ,mouth, and throat, started last night. The patient usually takes Firazyr for angioedema attacks, but did not have it at this time. Patient reported history of intubation years ago 1. Patient presented with a true upper airway emergency. The patient was given racemic Epinephrine, Solu-Medrol Benadryl and Pepcid . Patient initially declined intubation , however due to worsening of his condition, he subsequently required emergency tracheostomy. Patient was transferred to ICU for further management with admitting diagnosis of respiratory failure, hereditary angioedema, emergency tracheostomy HOSPITAL COURSE: Patient admitted to ICU. ENT evaluation was requested. Tracheostomy care and pulmonary toilet provided, airway was closely monitored. Patient subsequently undergone fiberoptic laryngoscopy prior and post-decannulation. No airway obstruction was seen prior to decannulation. Patient was decannulated. Fiberoptic laryngoscopy was repeated 5 minutes after decannulation without any changes noted. ENT specialist stayed with the patient for additional 20 minutes in ICU, patient was stable. Patient subsequently was transferred to telemetry floor. Supplemental oxygen titrated to keep pulse oximetry above 92% . Patient was able to be weaned from the oxygen. Patient requested to be DNR/ DNI. Code status changed on July 26 after careful discussion with the patient. Patient was stable for discharge home , recommended PFTs outpatient. FINAL DIAGNOSES: 1. Respiratory failure secondary to angioedema. 2. Emergency tracheostomy. 3. Hereditary angioedema. 4. Status post fiberoptic laryngoscopy 2, prior and post decannulation. 5. Status post decannulation of tracheostomy. DISCHARGE MEDICATIONS: See Medication Reconciliation list. Scripts for Firazyr provided. DISCHARGE INSTRUCTIONS: Patient was discharged home. Recommended PFT as outpatient. Follow up with primary care provider. I have been assigned to dictate discharge summary for this account. I was not involved in the patient's management. Terrie Siddiqi NP ([place]) Jul 28, 2017 10:23
== END 2017-07-27 12:00 | disposition home or self-care (01) | DRG 4 ==
LOC: EMR 08:02 → ICU 10:04 → EDBEDREQ 10:15 → 2E 07-26 09:03
PROC: 0B113F4 Bypass Trachea to Cutaneous with Tracheostomy Device, Percutaneous Approach (ICD-10-PCS; principal; 2017-07-23)
PROC: 5A1945Z Respiratory Ventilation, 24-96 Consecutive Hours (ICD-10-PCS; principal; 2017-07-23)
PROC: 0BP1XFZ Removal of Tracheostomy Device from Trachea, External Approach (ICD-10-PCS; 2017-07-25)
PROC: 0CJS8ZZ Inspection of Larynx, Via Natural or Artificial Opening Endoscopic (ICD-10-PCS; 2017-07-25)
DX: J96.00 Acute respiratory failure, unspecified whether with hypoxia or hypercapnia (principal); D84.1 Defects in the complement system
CPT/HCPCS: 36415; 36600; 71045; 80053; 81001; 82550; 82803; 83880; 84478; 84484; 85007; 85025; 85610; 85730; 86160; 86850; 86900; 86901; 86927; 87081; 87086; 93005; 93970; 94002; 94003; 94640; 94664; 94760; 99291; 99292; J2250; J7620